=== PATIENT | female | born 1970 | race Caucasian/White ===

== ENCOUNTER → 2023-09-17 13:55 | Outpatient (REF) | payer BC, SELFPAY | LOC: RAD 13:55 | PROVIDERS: ATTENDING PHYSICIAN Family Medicine | DX: R05.3 Chronic cough (principal); R07.89 Other chest pain | CPT/HCPCS: 71101 ==

== ENCOUNTER → 2023-10-20 | Outpatient (REF) | payer BC, SELFPAY | LOC: DHSLP | PROVIDERS: ATTENDING PHYSICIAN Internal Medicine; FAMILY PHYSICIAN Family Medicine | DX: G47.30 Sleep apnea, unspecified (principal); R06.83 Snoring | CPT/HCPCS: 95800 ==

== ENCOUNTER 2024-06-27 01:04 | Emergency (ER) | payer SELFPAY ==
[2024-06-27 01:04] VITALS: BMI 44.2
[2024-06-27 01:08] VITALS: BP 147/101
--- NOTE | 2024-06-27 02:15 | ED.GENMED ---
History of Present Illness
General
Chief Complaint: Musculo-Skeletal Complaint
Source: patient
Exam Limitations: none
Time Seen by Provider: 06/27/24 01:50
History of Present Illness
History of Present Illness:
This is a 53 year old female that comes in with c/o right flank pain. sates that she has severe pain on the right sided and that she has a chronic cough and has not been able to cough. States that she can't get Comfortable. States that this started
2 days ago and after lunch today she sneezed and the pain got worse. States that she has been also dizzy. Denies any fever,chills, chest pain, SOB, abd pain, nausea, vomiting, diarrhea, headache, urinary burning. Denies any falls or injury.
Past History
Past History
ED Past Medical History: GERD, HTN, Other (Seasonal allergies, COVID-27 August 2021 with concern for long-haul COVID symptoms, Chronic cough) and Other (Prediabetes, obesity)
ED Past Surgical History: Gynecological (Elective ) and Other (Myringotomy tubes)
Social History
Tobacco: Former smoker
Alcohol: Occasional
Personal:
Living: with family
Employment: Employed
Family History
Family History: Other (Noncontributory)
Review of Systems
Review of Systems
All Other Systems: ROS reviewed and negative except as documented in HPI and ROS
Constitutional: Reports no symptoms; Denies fever or chills
EENT: Reports no symptoms
Respiratory: Reports cough (Chronic); Denies trouble breathing
Cardiac: Reports no symptoms; Denies chest pain
ABD/GI: Reports no symptoms; Denies abdominal pain, nausea, vomiting or diarrhea
: Reports flank pain (Right sided); Denies dysuria, frequency or urgency
Musculoskeletal: Reports other (Right lower rib pain/flank pain)
Skin: Reports no symptoms
Neurological: Reports dizzy; Denies headache
Psychiatric: Reports no symptoms
Phy Exam
General Physical Exam
General Presentation: well appearing and no apparent distress
General age: appears stated age
General Skin: warm and dry
General Habitus: normal
General Mental: alert
General Hydration: appears well hydrated
ENT Exam
ENT Exam: TM's normal, pharynx normal and neck supple
Eye Exam
Eye Exam: EOMI
Cardiovascular Exam
Cardiovascular Exam: regular rate/rhythm, no edema and normal peripheral pulses
Pulmonary Exam
Pulmonary Exam: lungs clear, no respiratory distress, no rales, chest non tender, no crackles, no rhonchi, no wheezing and no cough
Gastrointestinal Exam
Gastrointestinal Exam: normal bowel sounds, non tender, soft, no organomegaly, no pulsatile mass, non distended and no cva tenderness
Musculoskeletal Exam
Musculoskeletal Exam: full ROM and no edema
Skin Exam
Skin Exam: normal color, warm/dry, no rash and no petechia
Psychiatric Exam
Psychiatric Exam: normal mood/affect
Course
Orders/Labs/Results
Orders:
Orders
06/27/24 01:59
Ribs, Right 3 View W/PA Chest [CR Ribs-right 3 Vw W/pa Chest*] Urgent
Comment:
Reason For Exam: Right sided rib pain
06/27/24 02:01
Test Result ONCE
06/27/24 02:35
Complete Blood Count/With Diff Urgent
Comprehensive Metabolic Panel Urgent
HCG, Serum Qualitative Screen Urgent
06/27/24 03:42
Urinalysis Reflex To Culture Urgent
Date Specimen was Collected: 06/27/24
Time Specimen was Collected: 03:41
Urine Microscopic Reflex Cult Urgent
Abnormal Lab Results
06/27/24 06/27/24
02:35 03:42
Hgb 11.8 L g/dL
(12.0-16.0)
Hct 36.3 L %
(37.0-47.0)
MCHC 32.5 L g/dL
(33.0-37.0)
Absolute Neuts (auto) 7.4 H 10^3/uL
(1.4-6.5)
Absolute Monos (auto) 0.7 H 10^3/uL
(0.1-0.6)
Glucose 134 H mg/dl
(70-99)
ALT 40 H U/L
(0-35)
Ur Occult Blood Reflex 1+ A
(Negative)
06/27/24 02:35
06/27/24 02:35
H/H slightly low. Hyperglycemia. ALT slightly elevated. Urine negative for infection. HCG negative.
Vital Signs
Initial and Last Documented VS:
Initial Vital Signs
Temp Pulse Resp BP Pulse Ox
98.4 F 74 20 147/101 97
06/27/24 01:08 06/27/24 01:08 06/27/24 01:08 06/27/24 01:08 06/27/24 01:08
Last Documented Vital Signs
Temp Pulse Resp BP Pulse Ox
98.4 F 78 18 115/89 98
06/27/24 01:08 06/27/24 02:38 06/27/24 02:38 06/27/24 02:39 06/27/24 02:38
MDM/Problems Addressed
Differential Diagnosis Includes:
Fracture rib, Renal calculus
MDM/Problems Addressed:
This is a 53 year old female that come in with c/o right flank pain. States that this started 2 days ago and then today after she sneezed the pain is now excruciating.
Will get labs, Rib series and urine. If positive for blood and chest negative for any rib fractures will get CT to r/o renal calculus
Back into see patient. Explained that her blood work shows that her blood sugar is elevated at 134 and that the ALT is slightly elevated. Patient chest is negative for any rib fractures or acute disease. Patient is drinking water to be able to
urinate. Explained that if there is blood a CT could be done to r/o a renal calculus. Explained that this may also be musculoskeletal in nature from her coughing.
Into see patient. Urine has +1 blood but negative for infection. Explained to patient that the fact that her pain can be reproduced it is more likely musculoskeletal in nature. Offered patient a CT scan. Patient can use Tylenol and Ibuprofen and
alternate with them. Patient to return with any concern.
Chronic conditions affecting care:
Chronic cough
Acute Exacerbation and/or Progression of Chronic Illness:
NA
*Radiology
Radiology exam reviewed: preliminary read by ED provider (Chest- Negative for rib fractures. No acute cardiopulmonary disease. )
*Pulse Oximetry
Patient hypoxic: no
*EKG
Interpreted by ED Provider?: NA
Rate: EKG- N/A
*[facility] Teacher Interpretation
Rate: E[facility] Teacher- N/A
*Critical Care Note
Total Time (30-74mins, 75-104mins- exclusive of procedures): Not Applicable
ED Attending Note
-
Portions of this chart may have been created with voice recognition software.� Occasional wrong word or��sound alike� substitutions may have occurred due to the inherent limitations of voice recognition software.
Discharge Plan
Departure
Patient Disposition: Home (Routine Discharge)
Date of Disposition: 06/27/24
Time of Disposition: 04:10
Patient with high blood pressure during this ER visit?: No
Condition: Good
Covid-19: Not Applicable
Discharge Problem:
Right flank pain
Instructions: Flank Pain (DC), Musculoskeletal Pain
Prescriptions:
No Action
lansoprazole [Prevacid] 30 MG capsule,delayed release(DR/EC)
30 mg PO DAILY
Referrals:
NONE,* [Family Provider] -
Activity Restrictions/Additional Instructions:
As discussed, your blood work shows that your Blood sugar is elevated and that the ALT which is a liver enzymes is slightly elevated. Your Urine does have 1+ blood but negative for infection. Your Rib series with chest x-ray was negative for any
obvious rib fractures. You may use Tylenol 1000mg every 6 hours for pain and alternate with ibuprofen 600mg every 6 hours with food. So if you take the Tylenol at 9am, the Ibuprofen would be due at 12 noon and then the Tylenol again at 3pm and
Ibuprofen at 6pm. IF YOU HAVE INCREASED OR CHANGING PAIN, OR YOU HAVE ANY OTHER CONCERNS PLEASE RETURN TO THE EMERGENCY ROOM.
Interventions
Interventions:
*Risk Screen - Suicide Last Done: 06/27/24 01:08
*General Assessment Last Done: 06/27/24 01:08
*Neglect/Abuse Screening Last Done: 06/27/24 01:08
ED- Fall Risk Assessment Last Done: 06/27/24 01:08
*ED COVID-19 Vaccine History Last Done: 06/27/24 01:08
ED-Musculoskeletal Assessment Last Done: 06/27/24 02:49
Discharge Date and Time
Print Language: ITALIAN
[2024-06-27 02:39] VITALS: BP 115/89
[2024-06-27 02:47] LABS: % Basophils 0.5 % (0-2); % Eosinophils 0.7 % (0-6); % Immature Granulocytes 0.3 % (0-0.5); % Lymphocytes 24.3 % (20.5-51.1); % Neutrophils 68.2 % (42.2-75.2); Absolute Basophils 0.1 10^3/uL (0-0.2); Absolute Eosinophils 0.1 10^3/uL (0-0.7); Absolute Lymphocytes 2.6 10^3/uL (1.2-3.4); Absolute Monocytes 0.7 10^3/uL (0.1-0.6); Absolute Neutrophils 7.4 10^3/uL (1.4-6.5); Hematocrit 36.3 % (37.0-47.0); Hemoglobin 11.8 g/dL (12.0-16.0); Mean Corp Hgb Conc. 32.5 g/dL (33.0-37.0); Mean Corpuscular Volume 86.2 fL (81.0-99.0); Mean Platelet Volume 8.3 fL (7.4-10.4); Nucleated Red Blood Cells % 0 %; Platelet Count 386 10^3/uL (130-400); Red Blood Cell Count 4.21 10^6/uL (4.20-5.40); Red Cell Dist. Width 12.9 % (11.5-14.5); White Blood Cell Count 10.8 10^3/uL (4.8-10.8)
[2024-06-27 02:56] LABS: ALT (SGPT) 40 U/L (0-35); AST (SGOT) 28 U/L (14-36); Alkaline Phosphatase 71 U/L (38-126); Blood Urea Nitrogen 17 mg/dl (7-17); Calcium 9.2 mg/dl (8.4-10.2); Carbon Dioxide 27 mmol/L (22-30); Chloride 100 mmol/L (98-107); Estimated Creatinine Clearance 93 ml/min; Glucose 134 mg/dl (70-99); Potassium 3.8 mmol/L (3.5-5.1); Sodium 139 mmol/L (135-145); Total Bilirubin 0.5 mg/dl (0.2-1.3); eGFR > 60.00
[2024-06-27 02:57] LABS: HCG, Serum Qualitative Screen Negative
[2024-06-27 03:57] LABS: Urine Albumin Negative (Neg - Trace); Urine Bilirubin Negative (Negative); Urine Character Clear (Clear); Urine Color Yellow; Urine Glucose Negative (Negative); Urine Ketone Negative (Negative); Urine Leukocyte Negative (Negative); Urine Nitrite Negative (Negative); Urine Occult Blood 1+ (Negative); Urine Specific Gravity 1.015 (<1.030); Urine Urobilinogen Negative (Neg - 1+)
[2024-06-27 04:14] LABS: Urine Bacteria Few (Negative); Urine Urothelial Cell 0-2 /LPF (FEW); Urine White Cell 0-2 /HPF (0-5)
== END 2024-06-27 04:30 | disposition home or self-care (01) ==
LOC: EMR 01:04
PROVIDERS: Clinical Nurse Specialist Family Health; EMERGENCY PHYSICIAN Emergency Medicine
DX: R10.9 Unspecified abdominal pain (principal); K21.9 Gastro-esophageal reflux disease without esophagitis; I10 Essential (primary) hypertension; Z86.16 Personal history of COVID-19; Z87.891 Personal history of nicotine dependence
CPT/HCPCS: 99283; 71101; 80053; 81003; 81015; 84703; 85025

== ENCOUNTER → 2025-01-22 08:44 | Outpatient (REF) | payer OTHER, SELFPAY | LOC: WDC 08:44 | PROVIDERS: ATTENDING PHYSICIAN Obstetrics & Gynecology | DX: R92.8 Other abnormal and inconclusive findings on diagnostic imaging of breast (principal) | CPT/HCPCS: 76642; 77061; 77065 ==